=== PATIENT | female | born 1930 | race Caucasian/White ===

== ENCOUNTER 2017-04-28 09:16 | Day surgery (SDC) | payer BC ==
[2017-04-27 09:06] VITALS: BMI 32.1
[2017-04-28 09:48] VITALS: TEMP 97.8
[2017-04-28] MEDS ORDERED: IBUPROFEN 800 MG/8 ML IJ IVPB ONE (11:40)
[2017-04-28] MEDS ORDERED: MIDAZOLAM HCL 2 MG/2 ML SINGLE DOSE VIAL ONE (11:41)
[2017-04-28] MEDS ORDERED: PROPOFOL 20 ML ONE ×2 (11:41)
[2017-04-28] MEDS ORDERED: ONDANSETRON 4 MG/2 ML VIAL IVPUSH PRN (12:24)
[2017-04-28] MEDS ORDERED: LACTATED RINGERS SOLUTION 1,000 ML IV SCH (12:30)
[2017-04-28] MEDS ORDERED: oxyCODONE HCL 5 MG TABLET PO PRN (12:52)
[2017-04-28] MEDS ORDERED: ONDANSETRON 4 MG/2 ML VIAL IVPB PRN (12:52)
--- NOTE | 2017-04-28 12:56 | HP ---
History & Physical Update - History History: No Change - Physical Physical: No Change - Assessment Assessment: No Change - Plan Plan: No Change (Consent sined and witnessed, all questions answered)
[2017-04-28] MEDS ORDERED: ELECTROLYTE-148 SOLN 1,000 ML IV SCH (13:00)
--- NOTE | 2017-04-28 13:01 | OP ---
Operative Note - Note: Operative Date: 04/28/17 Pre-Operative Diagnosis: 87 yo P2 with Thick Endometrium, h/o Breast CA, s/p Tamoxifen Operation: Hysteroscopy, polypectomy, D&C Findings: 1. Ennometrial polyp 2. Large amount of overgrown Endometrium Post-Operative Diagnosis: Same as Pre-op (and Endometrial polyp) Surgeon: Yessy George Anesthesiologist/SERVICE SPRINKLER HELPER: Melissa Harmon Anesthesia: MAC Specimens Removed: 1. Endometrial polyp. 2. Endometrial curettings Estimated Blood Loss (mls): 5 Drains & Tubes with Location: Fluid deficit - 130cc Drains, Volume Out (mls): 100 Fluid Volume Replaced (mls): 600 Operative Report Dictated: Yes
[2017-04-28] MEDS ORDERED: IBUPROFEN 800 MG/8 ML IJ IVPB PRN (13:09)
[2017-04-28] MEDS ORDERED: IBUPROFEN 600 MG TABLET (FP) PO PRN (13:10)
[2017-04-28 14:28] VITALS: BP 145/75; PULSE 71
--- NOTE | 2017-04-29 12:52 | OP ---
DATE OF OPERATION: 04/28/2017 PREOPERATIVE DIAGNOSIS: An 87-year-old para 2 with thickened endometrium, history of breast cancer status post Tamoxifen. POSTOPERATIVE DIAGNOSIS: An 87-year-old para 2 with thickened endometrium, history of breast cancer status post Tamoxifen, endometrial polyp. OPERATION: Hysteroscopy, polypectomy, dilation and curettage. SURGEON: Allan George MD ANESTHESIOLOGIST: Melissa Harmon MD FINDINGS: Endometrial polyp and large amount of overgrown endometrium. ANESTHESIA: MAC. SPECIMENS REMOVED: 1. Endometrial polyp. 2. Endometrial curettings. ESTIMATED BLOOD LOSS: 5 mL. DESCRIPTION OF OPERATIVE PROCEDURE: After ensuring informed consent, the patient was brought to the operating room, and masked anesthesia was administered. The patient was positioned in dorsal lithotomy position. The perineum was prepped and draped in sterile fashion. The bladder drained 100 mL of urine. After the [facility] 5-mm diagnostic hysteroscope was assembled and , the Ortiz speculum was placed into the vagina, and cervix was articulated with single-tooth tenaculum and dilated with gradually increasing in size Olson dilators to size 17 gauge to accommodate 5-mm [facility] hysteroscope. Overgrown endometrium and left sessile posterior polyp identified. Sharp serrated curette was used after the hysteroscope was removed to remove endometrial tissue and the polyp. All pathology specimens were sent for pathology evaluation. The hysteroscope used again to re-evaluate the contents of the uterus. No perforations were noted. Endometrium appeared much more denuded at this time. Fluid deficit was 130 mL. All instruments were removed from the vagina. Excellent hemostasis was noted. The patient received 600 mL of Plasma-Lyte and was brought to recovery room in stable condition. ALLAN GEORGE M.D. [id number]
--- NOTE | 2017-04-29 14:33 | PATH ---
Surgical Pathology Report Patient Name: [facility]TER [facility]. Rec. #: [id number] /Age/Gender: 1930 (Age: 87) / F Account: [id number] Location: [facility] SURGICAL Taken: 04/28/2017 Received: 04/28/2017 Reported: 04/29/2017 Physicians: Yessy George M.D. Specimen(s) Received A: ENDOMETRIAL POLYP B: ENDOMETRIAL CURETTINGS Clinical History Endometrial thickening, obesity, history of breast cancer, status post tamoxifen Final Diagnosis A. ENDOMETRIAL POLYP, POLYPECTOMY: ENDOMETRIAL POLYP. FRAGMENTS OF BENIGN SMOOTH MUSCLE. B. ENDOMETRIUM, CURETTAGE: FRAGMENTS OF ENDOMETRIAL POLYP. SCANT BACKGROUND FRAGMENTS OF ATROPHIC ENDOMETRIUM. FRAGMENTS OF BENIGN SMOOTH MUSCLE. Electronically Signed Ibrahima Silva M.D. Gross Description A. Received in formalin labeled "endometrial polyp" are 4 pink-okeefe, irregular to polypoid portions of soft tissue ranging from 0.8-1.7 cm in greatest dimension. The specimens are submitted in toto in one cassette. B. Received in formalin labeled "endometrial curettings" is a 2.5 x 2.3 x 0.3 cm aggregate of okeefe-pink soft tissue fragments admixed with blood clot. The formalin is filtered and the specimen is entirely submitted in one cassette. 04/28/201704/28/2017
== END 2017-04-28 14:29 | disposition home or self-care (01) ==
LOC: JASU-SURG 09:16
PROVIDERS: ATTEND Obstetrics & Gynecology
PROC: 0UB98ZX Excision of Uterus, Via Natural or Artificial Opening Endoscopic, Diagnostic (ICD-10-PCS; principal; 2017-04-28 11:00)
PROC: 0UDB8ZX Extraction of Endometrium, Via Natural or Artificial Opening Endoscopic, Diagnostic (ICD-10-PCS; 2017-04-28 11:00)
DX: N84.0 Polyp of corpus uteri (principal); Z85.3 Personal history of malignant neoplasm of breast
CPT/HCPCS: 88305-TC; 94760

== ENCOUNTER 2017-06-05 10:06 | Day surgery (SDC) | payer BC ==
[2017-05-25 13:27] VITALS: BMI 33.5
--- NOTE | 2017-05-27 14:39 | HP ---
Satellite [facility] - Chief Complaint Chief Complaint: left knee pain - Past Medical History Allergies/Adverse Reactions: Allergies Allergy/AdvReac Type Severity Reaction Status Date / Time acetaminophen [From Tylenol] Allergy Severe "I GO INTO Verified 05/25/17 13:16 A TRANCE" Opioids - Morphine Analogues AdvReac Severe Vomiting Verified 05/25/17 13:16 Opioids-Meperidine and AdvReac Severe Vomiting Verified 05/25/17 13:16 Related Opioids-Methadone and Related AdvReac Severe Vomiting Verified 05/25/17 13:16 VAGINAL LUBRICANT AdvReac Severe Itching Uncoded 05/25/17 13:16 - Current Medications Current Medications: Home Medications Medication Instructions Recorded Fluticasone Prop 0.05% Nasal 50 mcg .ROUTE HS 04/27/17 [Flonase -] Folic Acid [Folic Acid] 0.8 mg PO DAILY 04/27/17 Lactobacillus Acidophilus 1 tab PO HS 04/27/17 [Acidophilus] Metoprolol Succinate [Toprol Xl] 50 mg PO HS 04/27/17 Azelastine HCl 205.5 mcg NS HS 05/25/17 Buspirone HCl [Buspar -] 5 mg PO HS 05/25/17 Ca/D3/Mag#11/Zinc/Beet Flumer/Mitesh/Bor 1 each PO DAILY 05/25/17 [Caltrate 600+D Plus Tablet] Elmer-3 Fatty Acids/Fish Oil [Fish 1 each PO DAILY 05/25/17 Oil 1,000 mg Softgel] Satellite Physical Exam - Physical Examination General Appearance: Well Nourished, Well Developed, Alert & Oriented x3 ENT: Clear Lung: Normal air movement Heart: Regular rate & rhythm Extremities: Other (left knee- + swelling, + ttp medially, decr rom, nvi xrays show medial djd) Neurological: Intact, Alert, Oriented Satellite Impression/Plan - Impression/Plan Impression: left knee medial djd Operative Procedure: left medial warren ukr Date to be Performed: 06/05/17
[2017-06-05] MEDS ORDERED: GABAPENTIN 300 MG CAPSULE (FP) PO ONE (10:14)
[2017-06-05] MEDS ORDERED: TRANEXAMIC ACID 1000 MG/10 ML VIAL IVPUSH ONE (10:14)
[2017-06-05] MEDS ORDERED: CEFAZOLIN 1 GM/D5W 50 ML IVPB ONE (10:14)
[2017-06-05] MEDS ORDERED: CELECOXIB 200 MG CAPSULE PO ONE (10:14)
[2017-06-05] MEDS ORDERED: BUPIVACAINE HCL/PF (5 MG/ML) 30 ML VIAL IJ ONE (11:08)
[2017-06-05] MEDS ORDERED: MIDAZOLAM HCL 2 MG/2 ML SINGLE DOSE VIAL ONE ×2 (11:09→11:29)
[2017-06-05] MEDS ORDERED: VANCOMYCIN 1,000 MG VIAL (RESTRICTED TO ID ONLY) ONE ×2 (11:27→11:29)
[2017-06-05] MEDS ORDERED: THROMBIN (BOVINE) 5,000 UNIT VIAL TP ONE (11:27)
[2017-06-05] MEDS ORDERED: GELATIN, ABSORBABLE 100 EACH SPONGE TP ONE (11:27)
[2017-06-05] MEDS ORDERED: ROPIVICAINE 0.2%/MORPH PF/KETOROLAC - 51ML DISP.SYRINGE IA ONE (11:27)
[2017-06-05] MEDS ORDERED: ONDANSETRON 4 MG/2 ML VIAL IVPUSH PRN (12:44)
[2017-06-05] MEDS ORDERED: TRANEXAMIC ACID 1000 MG/10 ML VIAL ONE (12:44)
[2017-06-05] MEDS ORDERED: oxyCODONE HCL 5 MG TABLET PO PRN (12:44)
[2017-06-05] MEDS ORDERED: ACETAMINOPHEN 325 MG TABLET (FP) PO SCH (12:45)
[2017-06-05] MEDS ORDERED: ePHEDrine SULFATE 50 MG/1 ML AMPULE ONE (13:27)
--- NOTE | 2017-06-05 14:38 | SURG ---
Surgery Continuity Manager Note Continuity Manager: Caity Silva PA-C Date of Service: 06/05/17 Diagnosis: left knee medial djd Procedure: left medial warren ukr I was present for the entirety of the operative procedure. For further detail, please refer to operative report. Visit type - Case Type Case Type: Scheduled Admission
--- NOTE | 2017-06-05 14:40 | OP ---
Operative Note - Note: Operative Date: 06/05/17 Pre-Operative Diagnosis: left knee medial djd Operation: left medial warren ukr Post-Operative Diagnosis: Same as Pre-op Surgeon: Azam Ferreira General Warehouse Worker: Caity Silva Anesthesiologist/SUPERVISOR PLASTERING: Terry Garcia Anesthesia: Spinal Fluid Volume Replaced (mls): 1,100 Operative Report Dictated: Yes
[2017-06-05] MEDS ORDERED: MAG HYDROX/AL HYDROX/SIMETH 30 ML UNIT-DOSE CUP PO PRN (14:48)
[2017-06-05] MEDS ORDERED: LACTATED RINGERS SOLUTION 1,000 ML IV SCH (15:00)
[2017-06-05] MEDS: ONDANSETRON 4 MG/2 ML VIAL IVPB PRN (15:20)
[2017-06-05] MEDS ORDERED: ONDANSETRON 4 MG/2 ML VIAL ONE (15:27)
[2017-06-05] MEDS: LACTATED RINGERS SOLUTION 1,000 ML IV SCH (16:19)
[2017-06-05] MEDS: traMADol HCL 50 MG TABLET PO PRN (19:26)
[2017-06-05] MEDS ORDERED: FLUTICASONE PROP 0.05% 16 GM NASAL SPRAY NS SCH (22:00)
[2017-06-05] MEDS ORDERED: METOPROLOL SUCCINATE 50 MG TAB.SR.24H (FP) PO SCH (22:00)
[2017-06-05] MEDS ORDERED: PATIENT'S OWN MEDICATION (NON-FORMULARY) (Azelastine Hcl [Azelastine Hcl] 205.5 MCG) NS SCH (22:00)
[2017-06-05] MEDS ORDERED: busPIRone HCL 5 MG TABLET PO SCH (22:00)
[2017-06-05] MEDS ORDERED: LACTOBACILLUS ACIDOPHILUS 1 EACH TAB (FP) PO SCH (22:00)
[2017-06-05] MEDS ORDERED: LACTOBACILLUS ACIDOPHILUS PO SCH (22:00)
[2017-06-05] MEDS: GABAPENTIN 300 MG CAPSULE (FP) PO SCH (22:05)
[2017-06-05] MEDS: SENNOSIDES/DOCUSATE COMBO (SENNA PLUS) TABLET (UD) PO SCH (22:05)
[2017-06-05] MEDS ORDERED: VANCOMYCIN 1 GRAM (PRE-DOCKED) 250 ML IVPB ONE (23:55)
[2017-06-06] MEDS: traMADol HCL 50 MG TABLET PO PRN (06:37)
[2017-06-06 06:47] VITALS: BP 159/69; PULSE 67; TEMP 97.9
[2017-06-06] MEDS: oxyCODONE HCL 5 MG TABLET PO PRN ×2 (07:15→10:02)
[2017-06-06] MEDS ORDERED: ASPIRIN 325 MG TABLET PO SCH (08:00)
[2017-06-06] MEDS: GABAPENTIN 300 MG CAPSULE (FP) PO SCH (09:13)
[2017-06-06] MEDS: SENNOSIDES/DOCUSATE COMBO (SENNA PLUS) TABLET (UD) PO SCH (09:15)
[2017-06-06] MEDS ORDERED: PATIENT'S OWN MEDICATION (NON-FORMULARY) (Folic Acid [Folic Acid] 0.8 MG) PO SCH (10:00)
[2017-06-06] MEDS ORDERED: MULTIVITAMINS (DAILY MVI) TABLET (FP) PO SCH (10:00)
[2017-06-06] MEDS ORDERED: [UNRECOGNIZED DRUG - OTHER] PO SCH (10:00)
[2017-06-06] MEDS ORDERED: PANTOPRAZOLE 40 MG TABLET (FP) PO SCH (10:00)
--- NOTE | 2017-06-06 10:14 | SPEC ---
DATE OF OPERATION: 06/05/2017 OPERATION: Left medial unicompartmental knee replacement with robotic-assisted navigation (MAKOplasty) and patelloplasty. PREOPERATIVE DIAGNOSIS: Degenerative joint disease, left knee. POSTOPERATIVE DIAGNOSIS: Degenerative joint disease, left knee. SURGEON: Azam Ferreira M.D. TEXTILE ENGINEER: OLGA Brown ANESTHESIA: Regional and spinal. CLOSURE: Medial LIZETH components with a cemented No. 2 femur, No. 2 tibia, 9 mm polyethylene, No. 1 Vicryl to fascia, 0 and 2-0 subcutaneous and 3-0 Monocryl subcuticular to skin with skin glue, 4-0 undyed Vicryl for pin sites. ESTIMATED BLOOD LOSS: Negligible. TOURNIQUET TIME: Less than 30 minutes. COMPLICATIONS: None. CONDITION: To recovery room in stable condition. PROCEDURE: Patient was taken to the operating room. Spinal and femoral block anesthesia was administered by the anesthesiologist. IV Kefzol and TXA were administered prophylactically prior to the case. A well-padded pneumatic tourniquet was placed on the left proximal thigh. The left lower extremity was prepped and draped in the usual sterile fashion. A 6 cm longitudinal incision was made along the medial retinaculum from mid patella toward the tibial tubercle. Hemostasis was achieved using Bovie cautery. Sharp dissection was carried down to the level of the capsule, which was opened the entire length of incision. A subperiosteal dissection in the anterior medial proximal tibia. Periosteal elevator was used to facilitate this dissection. Partial fat pad excision was performed to gain visualization. A femoral and tibial checkpoint were malleted into place. Two bicortical pins were drilled through small stab incisions into the femur 1 handbreadth above the patella. Two bicortical pins were drilled into the tibia 1 handbreadth below the tibial tubercle through small stab incisions as well. To these, pins were attached to clamp and the navigation arrays. The knee was then registered with the navigation device by ascertaining the center of rotation of the hip, both the medial and lateral malleoli, at approximately 50 points on the tibia and femur. Registration was within LIZETH parameters, being less than half a millimeter. At this time, the medial osteophytes on both the femur and tibia were removed by use of rongeur. The knee was taken through a range of motion and with stressing the medial compartment open at 0, 30, 60, 90 and 120 degrees. Stress points were obtained in order to develop a flexion/extension and a tightness/looseness graph. The robotic navigation device obtained a virtual tracking of the knee and found that the traction was in excellent position. The components were manipulated virtually in order to obtain a flexion/extension, tightness/looseness graph which was then +/- 1 mm. The robot was then brought into the field and registered with the navigation device. The robot was then used to jerry the bone on both the femur and the tibia to the specifications and direction of the navigation device. All excess bone and osteophytes and cartilage were removed, including the medial meniscus. Care was taken to protect the MCL throughout the case. The trial components were then placed into the knee with the appropriate polyethylene plastic trial liner. The knee was taken through a range of motion and the graph on the navigation device was then used again to confirm ideal position of the components and ideal tightness/looseness of the components. The trial components were removed, along with the checkpoints and the array. The knee was exsanguinated with an Esmarch bandage and tourniquet inflated to 175 mmHg. The knee was post-antibiotic irrigated and then dried and then Avitene and Gelfoam were placed to aid in hemostasis. The real components were then cemented in using modern generation cement techniques with antibiotics, cement and pressurization. All excess cement was removed. The knee was thoroughly inspected to remove any excess cement and bone fragments. The real polyethylene component was then clipped into place. Range of motion revealed excellent range of motion and good tensioning throughout. The knee was post-antibiotic irrigated. The fascia was closed using 2-0 Vicryl interrupted suture. The tourniquet was deflated. Total tourniquet time was less than 30 minutes. Hemostasis was obtained. Another dose of TXA was administered. The subcutaneous was closed with 2-0 Vicryl, 3-0 Monocryl subcuticular for skin. A pain cocktail was infused throughout the soft tissue. The pin sites were irrigated and closed with 4-0 Vicryl and skin glue was used for all incisions. Sterile Aquacel dressing was placed on all incisions followed by a dressing from the toes to the thigh. Patient was transferred to the recovery room in stable condition. No complications. Mitul [id number]
[2017-06-06] MEDS: ONDANSETRON 4 MG/2 ML VIAL IVPB PRN (11:39)
[2017-06-06] MEDS: LACTATED RINGERS SOLUTION 1,000 ML IV SCH (13:35)
== END 2017-06-06 14:20 | disposition home health service (06) ==
LOC: FASU 10:06 → FM/S 16:14 → FASU 06-06 14:20
PROVIDERS: ATTEND Orthopaedic Surgery
PROC: 8E0YXBZ Computer Assisted Procedure of Lower Extremity (ICD-10-PCS; 2017-06-05)
PROC: 8E0Y0CZ Robotic Assisted Procedure of Lower Extremity, Open Approach (ICD-10-PCS; 2017-06-05)
PROC: 0SRD0L9 Replacement of Left Knee Joint with Medial Unicondylar Synthetic Substitute, Cemented, Open Approach (ICD-10-PCS; principal; 2017-06-05 12:58)
DX: M17.12 Unilateral primary osteoarthritis, left knee (principal)
CPT/HCPCS: 20985; 27446; C1776; S2900; 36415; 73560-TC-LT; 80048; 85027; 94010; 94760; 97116-GP; 97161-GP